=== PATIENT | female | born 1960 | race Caucasian/White ===

== ENCOUNTER 2023-09-29 10:34 | Outpatient (CLI) | payer OTHER | END 2023-09-29 10:35 | disposition home or self-care (01) | LOC: CSHRAD 10:34 | PROVIDERS: ATTEND Family Medicine | DX: R93.89 Abnormal findings on diagnostic imaging of other specified body structures (principal); R91.8 Other nonspecific abnormal finding of lung field; J98.11 Atelectasis | CPT/HCPCS: 71250 ==